=== PATIENT | female | born 1995 | race African-American/Black ===

== ENCOUNTER 2019-07-01 22:48 | Emergency (ER) | payer BC, OTHER ==
[~2019-07-01] VITALS: Ht 172.7 cm; Wt 72.6 kg
[~2019-07-01 22:48] MED LIST: CIPROFLOXACIN500 M2 ORAL; OMEPRAZOLE40 M1 ORAL
[2019-07-01 22:55] VITALS: BP 122/78
--- NOTE | 2019-07-01 22:55 | NUR ---
ED Nurse Note: PT WALKED IN TO ED C/O RIGHT SIDED LOWER EXT PAIN THAT RADIATES TO THE RIGHT PELVIC AREA TO LOWER RIGHT FLANK. PT DESCRIBES PAIN CONSTANT 7/10 PAIN. DENIES FEVER NAUSEA OR VOMITTING. VSS, NAD, AAOX4, AMBULATORY, ON MONITOR. ERMD AT BEDSIDE
--- NOTE | 2019-07-01 22:59 | Emergency Room Report ---
History of Present Illness General Chief Complaint: Abdominal Pain Source: Patient Present Illness HPI Patient presents with pain in the right lower quadrant. This began several hours ago and she took Advil. It was a 7/10 initially. Advil made it better. An hour and a half ago the pain returned. She feels pain in her right thigh extending up into her right lower quadrant and into her right flank area at this time. She tried to stretch but the pain was still significant. She had nausea without any vomiting. There is no fever or chills. She never had pain like this before. She twisted her ankle and has been immobilized for the last 4 days. She does take control pills. She does not smoke. There is no shortness of breath, chest pain. In place of pain is in the right lower quadrant suprapubic area. She denies any vaginal discharge, dysuria. Last menstruation June 11. No chest pain, palpitations, diarrhea, change in bowels, shortness of breath, joint pain, rashes, depression, anxiety, visual changes, dizziness, headache. Allergies: Coded Allergies: No Known Allergies (Unverified , 06/08/14) COVID-19 Screening Contact w/high risk pt: No Recent Travel to affected area: No Experienced COVID-19 symptoms?: No COVID-19 Testing performed PRE[employer]ED [employer] ASSOCIATE: No Patient History Social History: Denies: smoking Social History Narrative brought by Mom. Worked in entertainment Last Menstrual Period: 06/12/19 Now: No : 0 Para: 0 Reviewed Nursing Documentation: PMH: Agreed; PSxH: Agreed Nursing Documentation-PMH Past Medical History: No Stated History Hx Gastrointestinal Problems: Yes - ACID REFLUX Review of Systems All Other Systems: negative except mentioned in HPI Physical Exam Vital Signs Date Time Temp Pulse Resp B/P (MAP) Pulse Ox O2 Delivery O2 Flow Rate FiO2 07/01/19 22:50 98.2 68 16 125/82 (96) 98 Room Air Sp02 EP Interpretation: reviewed, normal General Appearance: well appearing, no apparent distress, GCS 15 Head: normocephalic Eyes: bilateral eye normal inspection, bilateral eye PERRL, bilateral eye EOMI ENT: moist mucus membranes Neck: supple Respiratory: lungs clear, normal breath sounds Cardiovascular #1: regular rate, rhythm, no edema Cardiovascular #2: 2+ radial (R) Gastrointestinal: normal inspection, normal bowel sounds, no mass, non- distended, no guarding, no rebound, tenderness - Suprapubic and right lower quadrant not exactly McBurney's point Genitourinary: no CVA tenderness - Though some reported tenderness there, deferred - for ultraound Musculoskeletal: back normal, normal range of motion, no calf tenderness, gait/ station normal, tender - Right inner thigh Neurologic: alert, oriented x3, grossly normal Psychiatric: mood/affect normal Skin: no rash, warm/dry Medical Decision Making Diagnostic Impression: Primary Impression: Pelvic pain Additional Impressions: Thigh pain Qualified Codes: M79.651 - Pain in right thigh Flank pain ER Course Patient presents with right lower quadrant pain that extends from her upper thigh up into her flank that started this evening. Differential is fairly broad including ectopic , ruptured ovarian cyst, DVT, kidney stone, urinary tract infection, pyelonephritis, appendicitis amongst others. Evaluation will be with labs and ultrasound including noninvasive vascular study of the right thigh. Suspicion for COVID-19 is low. Patient be treated with IV hydration, Reglan, Benadryl, ketorolac and fentanyl. If white count is elevated consideration for possible CT scan. Labs remarkable for normal WBC. UA felt to be contaminated. Ultrasound pelvic - normal. Venous study R thigh - no DVT. Patient's pain now 2/10. Abdomen soft, no guarding or referred pain. Discussed possible etiologies of pain with patient and also home observation. She understands that if the pain returns to return to ED for re-evaluation ( consider CT abdomen/pelvis). Patient stable for outpatient observation and treatment. Laboratory Tests Test 07/01/19 23:00 07/01/19 23:20 Urine Color Pale yellow Urine Appearance Slightly cloudy Urine pH 7 (4.5-8.0) Urine Specific [place] 1.015 (1.005-1.035) Urine Protein 1+ (NEGATIVE) H Urine Glucose (UA) Negative (NEGATIVE) Urine Ketones Negative (NEGATIVE) Urine Blood Negative (NEGATIVE) Urine Nitrite Negative (NEGATIVE) Urine Bilirubin Negative (NEGATIVE) Urine Urobilinogen Normal MG/DL (0.0-1.0) Urine Leukocyte Esterase 2+ (NEGATIVE) H Urine RBC 0-2 /HPF (0 - 2) Urine WBC 5-10 /HPF (0 - 2) H Urine Squamous Epithelial Cells Many /LPF (NONE/OCC) H Urine Bacteria Moderate /HPF (NONE) H Urine HCG, Qualitative Negative (NEGATIVE) White Blood Count 8.1 K/UL (4.8-10.8) Red Blood Count 4.45 M/UL (4.20-5.40) Hemoglobin 13.2 G/DL (12.0-16.0) Hematocrit 37.2 % (37.0-47.0) Mean Corpuscular Volume 84 FL (80-99) Mean Corpuscular Hemoglobin 29.6 PG (27.0-31.0) Mean Corpuscular Hemoglobin Concent 35.4 G/DL (32.0-36.0) Red Cell Distribution Width 10.5 % (11.6-14.8) L Platelet Count 322 K/UL (150-450) Mean Platelet Volume 7.3 FL (6.5-10.1) Neutrophils (%) (Auto) 48.1 % (45.0-75.0) Lymphocytes (%) (Auto) 41.7 % (20.0-45.0) Monocytes (%) (Auto) 7.4 % (1.0-10.0) Eosinophils (%) (Auto) 1.9 % (0.0-3.0) Basophils (%) (Auto) 0.9 % (0.0-2.0) Prothrombin Time 10.1 SEC (9.30-11.50) Prothrombin Time INR 0.9 (0.9-1.1) Activated Partial Thromboplast Time 29 SEC (23-33) Sodium Level 143 MMOL/L (136-145) Potassium Level 3.5 MMOL/L (3.5-5.1) Chloride Level 107 MMOL/L (98-107) Carbon Dioxide Level 26 MMOL/L (21-32) Anion Gap 10 mmol/L (5-15) Blood Urea Nitrogen 11 mg/dL (7-18) Creatinine 1.0 MG/DL (0.55-1.30) Estimated Glomerular Filtration Rate > 60 mL/min (>60) Glucose Level 96 MG/DL (74-106) Calcium Level 8.7 MG/DL (8.5-10.1) Total Bilirubin 0.2 MG/DL (0.2-1.0) Aspartate Amino Transferase (AST) 18 U/L (15-37) Alanine Aminotransferase (ALT) 20 U/L (12-78) Alkaline Phosphatase 49 U/L (46-116) Total Protein 6.6 G/DL (6.4-8.2) Albumin 3.3 G/DL (3.4-5.0) L Globulin 3.3 g/dL Albumin/Globulin Ratio 1.0 (1.0-2.7) Lipase 224 U/L (73-393) CT/MRI/US Diagnostic Results CT/MRI/US Diagnostic Results #1: Imaging Test Ordered: pelvic u/s Impression IMPRESSION: 1. Sonographic appearance of the uterus, within normal limits. 2. Both ovaries seen and appear within normal limits. 3. Specifically, no sonographic evidence of torsion. CT/MRI/US Diagnostic Results #2: Imaging Test Ordered: Venous study R thigh Impression no DVT Last Vital Signs Date Time Temp Pulse Resp B/P (MAP) Pulse Ox O2 Delivery O2 Flow Rate FiO2 07/02/19 01:40 98.5 72 18 116/62 99 Room Air 99 Status: improved Disposition: HOME, SELF-CARE Condition: Improved Scripts Acetaminophen (Tylenol) 325 Mg Tablet 650 MG ORAL Q6H PRN for Prn Pain/Headache/Temp > 101, #20 TAB 0 Refills Prov: Mario Shay MD 07/02/19 Mario Shay MD July 01, 2019 22:59
--- NOTE | 2019-07-01 23:00 | NUR ---
ED Nurse Note: BLOOD AND URINE COLLECTED AND SENT TO LAB.
[2019-07-01] MEDS ORDERED: Ketorolac 30mg Inj IV ONE (23:15)
[2019-07-01] MEDS ORDERED: fentaNYL 100 mcg/2 mL IV ONE (23:15)
[2019-07-01] MEDS ORDERED: DiphenhydrAMINE 50mg/ml Inj IVP ONE (23:15)
[2019-07-01] MEDS ORDERED: Metoclopramide 10mg/2ml Inj IVP ONE (23:15)
[2019-07-01 23:18] LABS: BILIRUBIN, URINE NEGATIVE (NEGATIVE); COLOR,URINE PALE YELLOW; GLUCOSE, URINE (UA) NEGATIVE (NEGATIVE); KETONES,URINE NEGATIVE (NEGATIVE); LEUKOCYTE ESTERASE ,URINE 2+ (NEGATIVE); NITRITE,URINE NEGATIVE (NEGATIVE); PH,URINE 7 (4.5-8.0); PROTEIN,URINE 1+ (NEGATIVE); UROBILINOGEN,URINE NORMAL MG/DL (0.0-1.0)
[2019-07-01 23:29] LABS: APPEARANCE,URINE SLIGHTLY CLOUDY
[2019-07-01 23:40] LABS: BASOPHILS % (AUTO) 0.9 % (0.0-2.0); EOSINOPHILS % (AUTO) 1.9 % (0.0-3.0); HEMATOCRIT 37.2 % (37.0-47.0); HEMOGLOBIN 13.2 G/DL (12.0-16.0); LYMPHOCYTES % (AUTO) 41.7 % (20.0-45.0); MEAN CORPUSCULAR VOLUME 84 FL (80-99); MONOCYTES % (AUTO) 7.4 % (1.0-10.0); NEUTROPHILS % (AUTO) 48.1 % (45.0-75.0); PLATELET COUNT 322 K/UL (150-450); RED BLOOD COUNT 4.45 M/UL (4.20-5.40); RED CELL DISTRIBUTION WIDTH 10.5 % (11.6-14.8); WHITE BLOOD COUNT 8.1 K/UL (4.8-10.8)
[2019-07-01 23:50] LABS: ANION GAP 10 mmol/L (5-15); BLOOD UREA NITROGEN 11 mg/dL (7-18); CALCIUM 8.7 MG/DL (8.5-10.1); CARBON DIOXIDE 26 MMOL/L (21-32); CHLORIDE 107 MMOL/L (98-107); POTASSIUM 3.5 MMOL/L (3.5-5.1); SODIUM 143 MMOL/L (136-145)
[2019-07-01 23:51] LABS: INR 0.9 (0.9-1.1)
[2019-07-01 23:55] LABS: ALANINE AMINOTRANSFERASE 20 U/L (12-78); ALBUMIN 3.3 G/DL (3.4-5.0); ALKALINE PHOSPHATASE 49 U/L (46-116); ASPARTATE AMINO TRANSFERASE 18 U/L (15-37); BILIRUBIN,TOTAL 0.2 MG/DL (0.2-1.0)
--- NOTE | 2019-07-02 01:00 | NUR ---
ED Nurse Note: US AT BEDSIDE
[2019-07-02 01:21] VITALS: BP 116/62
[2019-07-02] MEDS ORDERED: TYLENOL325 MG ORAL (01:33)
[2019-07-02 01:40] VITALS: BP 116/62
--- NOTE | 2019-07-02 01:40 | NUR ---
ER DISCHARGE NOTE: Patient is cleared to be discharged per ERMD, pt is aox4, on room air, with stable vital signs. pt was given dc and prescription instructions, pt was able to verbalize understanding, pt id band and iv site removed without complications. pt is able to ambulate with steady gait. pt took all belongings.
--- NOTE | 2019-07-02 02:14 | Diagnostic Imaging Report ---
EXAM: US Pelvis Transabdominal, Complete CLINICAL HISTORY: ABD PAIN TECHNIQUE: Real-time complete transabdominal pelvic ultrasound with image documentation. COMPARISON: No relevant prior studies available. FINDINGS: Uterus/cervix: Uterus measures 4.4 x 4.4 x 3.2 cm. Endometrial stripe measures 1.6 mm. No myometrial mass. Right ovary: Right ovary measures 3.7 x 2.2 x 2 cm. Normal blood flow. Left ovary: Left ovary measures 2.9 x 1.9 x 1.9 cm. Normal blood flow. Free fluid: No free fluid. Bladder: Unremarkable as visualized. Wall is normal thickness for degree of distention. Other findings: Small follicles are seen bilaterally. IMPRESSION: 1. Sonographic appearance of the uterus, within normal limits. 2. Both ovaries seen and appear within normal limits. 3. Specifically, no sonographic evidence of torsion.
--- NOTE | 2019-07-02 10:05 | Diagnostic Imaging Report ---
EXAM: ULTRASOUND Venous Duplex Lower Ext Uni CLINICAL HISTORY: Leg pain and edema. COMPARISON: None TECHNIQUE: Doppler examination include grayscale images obtained with and without compression, and color and spectral doppler analysis. FINDINGS: Doppler examination shows normal spontaneity, phasicity, compressibility in the right lower extremity. There is no thrombus identified by grayscale. Normal color and spectral flow is identified. There is no evidence of valvular incompetency or insufficiency. IMPRESSION: UNREMARKABLE VENOUS DUPLEX.
== END 2019-07-02 01:40 | disposition home or self-care (01) ==
LOC: EMR 23:09
DX: R10.2 Pelvic and perineal pain (principal); R10.31 Right lower quadrant pain; M79.651 Pain in right thigh; K21.9 Gastro-esophageal reflux disease without esophagitis
CPT/HCPCS: 36415; 76830; 76856; 80053; 81003; 81025; 83690; 85025; 85610; 85730; 86850; 86900; 86901; 87086; 93971; 96361; 96374; 96375; 99284; J1200; J1885; J2765; J3010; J7030